=== PATIENT | male | born 1980 | race African-American/Black ===

== ENCOUNTER 2016-03-14 19:52 | Emergency (ER) | payer SELFPAY ==
[~2016-03-14] VITALS: Ht 167.6 cm; Wt 87.0 kg
[2016-03-14 19:54] VITALS: BP 198/120; PULSE 97; RESP 15; TEMP 98; O2SAT 97
[2016-03-14] MEDS ORDERED: LIDOCAINE HCL 1% 50 ML VIAL INFIL ONE (20:30)
[2016-03-14] MEDS ORDERED: BACT800T5 PO (20:44)
--- NOTE | 2016-03-14 20:44 | PD ---
HPI Chief Complaint: Skin Problem Time Seen by Provider: 20:22 Travel History International Travel<30 days: No Contact w/Intl Traveler<30days: No Traveled to known affect area: No History of Present Illness HPI 36-year-old man presents with tenderness and inflammation and a small bump below his lip. He thought he had a ingrown hair. He shaved the area. It's gotten more tender and swollen over the past couple days. No fevers or chills. He's had one or 2 ingrown hairs before. He is a one or 2 abscesses drained in the remote past. Nothing recently. Otherwise has been feeling generally well and healthy. History Past Medical History Medical History: Denies Significant Hx Social History Tobacco Use: No Allergies-Medications (Allergen,Severity, Reaction): Coded Allergies: No Known Allergies (Unverified , 03/14/16) Reported Meds & Prescriptions Reported Meds & Active Scripts Active Bactrim DS (Sulfamethoxazole-Trimethoprim) 800-160 Mg Tab 1 Tab PO BID 5 Days Review of Systems Except as stated in HPI: all other systems reviewed are Neg Physical Exam Narrative Gen.: Well-appearing 36 year-old man, no acute distress. HEENT: Is a small tender nodule below his lip in the area of the mid lip. There is some scabbing. No purulent drainage. Data Data Last Documented VS Vital Signs Date Time Temp Pulse Resp B/P Pulse Ox O2 Delivery O2 Flow Rate FiO2 03/14/16 19:54 98.0 97 15 198/120 97 Room Air Orders Lidocaine 1% Inj (50 Ml) (Xylocaine 1% I (03/14/16 20:30) [facility] Medical Decision Making Medical Screen Exam Complete: Yes Emergency Medical Condition: Yes Differential Diagnosis Ingrown hair, abscess, Narrative Course Medical decision making Small abscess below the bottom lip, likely from an ingrown hair, will drain with a needle, outpatient follow-up. Procedures Procedure Narrative INCISION AND DRAINAGE OF ABSCESS: The area was prepped and was sterilely draped. A subcutaneous wheal of % Xylocaine 1 with a total number 3 mL was used to anesthetize the area. The area was properly anesthetized. A number 11 blade scalpel was used to make a 0.2-cm incision across the area of the abscess. Purulent drainage was expressed. Patient tolerated well. Diagnosis Primary Impression: Lip abscess Additional Instructions: Apply warm compresses to the area 3-4 times daily. Take antibiotics as prescribed. Return to the emergency department for any new or worsening symptoms. Med/Other Pt SpecificInfo: Prescription(s) given Scripts Sulfamethoxazole-Trimethoprim (Bactrim DS)800-160 Mg Tab1 Tab PO BID 5 Days Ref 0 Prov:Jakob Salazar MD 03/14/16 Disposition: 01 DISCHARGE HOME Condition: Stable Jakob Salazar MD Mar 14, 2016 20:44
== END 2016-03-14 20:58 | disposition home or self-care (01) ==
LOC: NEPE 19:52
DX: L02.818 Cutaneous abscess of other sites (principal)
CPT/HCPCS: 10060

== ENCOUNTER 2017-07-26 17:29 | Emergency (ER) | payer SELFPAY ==
[~2017-07-26] VITALS: Ht 170.2 cm; Wt 86.5 kg
[~2017-07-26 17:29] MED LIST: BACT800T5 PO
[2017-07-26 17:34] VITALS: BP 172/102; PULSE 82; RESP 18; TEMP 98.3; O2SAT 97
--- NOTE | 2017-07-26 17:46 | PD ---
HPI . Foot pain Chief Complaint: Pain: Acute or Chronic Time Seen by Provider: 17:37 Travel History International Travel<30 days: No Contact w/Intl Traveler<30days: No Traveled to known affect area: No History of Present Illness HPI Patient presents with a chief complaint of pins and needles in both feet. Onset was 3 days ago. Symptoms have been persistent since that time. He rates his discomfort at 10/10. He is concerned about poor circulation in his feet. He denies any history of diabetes. He denies any history of IV drug abuse. He does smoke pot. He smokes cigarettes. He also drinks occasional alcohol. Otherwise, he has no chronic medical problems and takes no medications. History Social History Tobacco Use: No Allergies-Medications (Allergen,Severity, Reaction): Coded Allergies: No Known Allergies (Unverified , 03/14/16) Reported Meds & Prescriptions Reported Meds & Active Scripts Active Bactrim DS (Sulfamethoxazole-Trimethoprim) 800-160 Mg Tab 1 Tab PO BID 5 Days Review of Systems Except as stated in HPI: all other systems reviewed are Neg Physical Exam Narrative GENERAL: Awake and alert and in no acute distress. SKIN: Warm and dry. Normal color and turgor. HEAD: Normocephalic/atraumatic. EYES: Pupils are equal. Extraocular movements are intact. NECK: Normal range of motion. Supple. CARDIOVASCULAR: Regular rate and rhythm. Pedal pulses are 4+ and equal. Capillary refill is less than 2 seconds. RESPIRATORY: Nonlabored respirations. Normal sats. MUSCULOSKELETAL: Atraumatic. Normal muscle tone. Normal movement of both feet. NEUROLOGICAL: A and O 3. Nonfocal. PSYCHIATRIC: Appropriate mood and affect. Data Data Last Documented VS Vital Signs Date Time Temp Pulse Resp B/P (MAP) Pulse Ox O2 Delivery O2 Flow Rate FiO2 07/26/17 17:34 98.3 82 18 172/102 (125) 97 MDM Medical Screen Exam Complete: Yes Emergency Medical Condition: No Narrative Course A medical screening exam was performed: At the time of evaluation the presenting medical condition was determined not to be of an emergent nature. The patient was given the option of receiving additional care, but declined. Patient was given options for additional community resources from which to obtain care. The Patient Has Been advised to seek medical attention for their presenting complaint. The patient has been advised to return to the ER at any time if an emergent condition develops. Primary Impression: Encounter for medical screening examination Condition: Stable Bree Rodriguez MD Jul 26, 2017 17:46
== END 2017-07-26 17:50 | disposition left against medical advice (07) ==
LOC: NEPD 17:29
DX: Z13.9 Encounter for screening, unspecified (principal); R20.2 Paresthesia of skin; Z72.0 Tobacco use
CPT/HCPCS: 99281